=== PATIENT | male | born 1970 | race Caucasian/White ===

== ENCOUNTER 2020-08-29 06:44 | Day surgery (SDC) | payer MEDICARE ==
[~2020-08-29] VITALS: Ht 172.7 cm; Wt 59.1 kg
[2020-08-29 07:10] LABS: BASOPHILS 0.8 % (0-2); EOSINOPHILS 0.8 % (0-7); HEMATOCRIT 40.3 % (42.0-54.0); HEMOGLOBIN 13.8 g/dL (13.5-17.5); LYMPHOCYTES 19.6 % (15-50); MCH 30.2 pg (26.0-34.0); MCHC 34.1 g/dL (31.0-37.0); MCV 88.6 fL (80.0-100.0); MEAN PLATELET VOLUME 7.9 fL (7.4-10.4); MONOCYTES 10.3 % (2-11); NEUTROPHILS 68.5 % (40-80); PLATELET COUNT 381 10x3/uL (130-400); RBC 4.55 10x6/uL (4.20-6.10); RDW 13.2 % (11.5-14.5)
[2020-08-29 07:28] LABS: ALBUMIN 3.9 g/dL (3.4-5.0); ALKALINE PHOSPHATASE 693 U/L (30-120); ALT (SGPT) 234 U/L (10-68); BILIRUBIN - TOTAL 1.07 mg/dL (0.2-1.3); CALC OSMOLALITY 268 mosm/kg (275-300); CALCIUM 10.1 mg/dL (8.5-10.1); CARBON DIOXIDE 26.9 mmol/L (21.0-32.0); CHLORIDE - SERUM 99 mmol/L (98-107); CREATININE - SERUM 0.7 mg/dL (0.6-1.3); GLUCOSE 105 mg/dL (74-106); POTASSIUM - SERUM 3.9 mmol/L (3.5-5.1); PROTEIN - SERUM 7.4 g/dL (6.4-8.2); SODIUM 135 mmol/L (136-145); UREA NITROGEN 9 mg/dL (7-18); eGFR NON AFRICAN AMERICAN > 90 mL/min (90-120)
[2020-08-29 07:52] LABS: APTT 27.3 SECONDS (22.8-39.4); INR 1.09 (0.85-1.17)
[2020-08-29] MEDS ORDERED: VALIUM5 MG PO (08:11)
[2020-08-29] MEDS ORDERED: RISPERDAL1 MG PO (08:11)
[2020-08-29] MEDS ORDERED: TYLENOL W/CODEI1 TAB PO (08:12)
[2020-08-29] MEDS ORDERED: LISINOPRIL10 MG PO (08:12)
[2020-08-29 08:37] VITALS: BP 130/80; Ht 172.7 cm; Wt 59.1 kg
--- NOTE | 2020-08-29 13:12 | NUR ---
IV D/C'D WITH CANNULA INTACT, PRESSURE HELD AND DRSG PLACED. NO PROCEDURE DONE, NO SEDATION, NO ANESTHESIA. PT AMBULATED OUT OF OPS
== END 2020-08-29 13:10 | disposition home or self-care (01) ==
LOC: D.CT 06:44
PROVIDERS: General Practice; ATTEND Nurse Practitioner
DX: R16.0 Hepatomegaly, not elsewhere classified (principal); E80.21 Acute intermittent (hepatic) porphyria; R63.4 Abnormal weight loss; I10 Essential (primary) hypertension; K40.90 Unilateral inguinal hernia, without obstruction or gangrene, not specified as recurrent; Z53.9 Procedure and treatment not carried out, unspecified reason

== ENCOUNTER 2020-09-26 08:26 | Day surgery (SDC) | payer MEDICARE ==
[~2020-09-26] VITALS: Ht 172.7 cm; Wt 60.9 kg
[~2020-09-26 08:26] MED LIST: LISINOPRIL10 MG PO; RISPERDAL1 MG PO; TYLENOL W/CODEI1 TAB PO; VALIUM5 MG PO
[2020-09-26 09:23] VITALS: BP 137/65; Ht 172.7 cm; Wt 60.9 kg
[2020-09-26 14:14] LABS: BASOPHILS 0.4 % (0-2); HEMATOCRIT 39.5 % (42.0-54.0); HEMOGLOBIN 13.2 g/dL (13.5-17.5); LYMPHOCYTES 20.3 % (15-50); MCH 30.6 pg (26.0-34.0); MCHC 33.5 g/dL (31.0-37.0); MCV 91.5 fL (80.0-100.0); MEAN PLATELET VOLUME 9.4 fL (7.4-10.4); MONOCYTES 12.5 % (2-11); NEUTROPHILS 65.8 % (40-80); PLATELET COUNT 347 10x3/uL (130-400); RBC 4.32 10x6/uL (4.20-6.10); RDW 14.1 % (11.5-14.5); WBC 5.7 10x3/uL (4.8-10.8)
--- NOTE | 2020-09-27 12:37 | OP ---
PATIENT NAME: ELIZABETH CHAN MEDICAL RECORD: [id number] :68 LOCATION:D.OPS ADMISSION DATE: SURGEON: LACI KEARNEY MD DATE OF OPERATION: 09/26/2020 PREOPERATIVE DIAGNOSIS: Unexplained weight loss. POSTOPERATIVE DIAGNOSES: Unexplained weight loss with 1 pedunculated colon polyp of 1.5 cm. PROCEDURES: 1. Esophagogastroduodenoscopy with antral biopsies. 2. Total colonoscopy to cecum. 3. Hot biopsy forceps polypectomy x1. SURGEON: Laci Kearney MD WASH OPERATOR: None. BLOOD LOSS: Minimal. ANESTHESIA: IV sedation. COMPLICATIONS: None. The risks, possible complications, and alternatives of the procedure were explained to the patient. He elects to proceed. ENDOSCOPIC COURSE: The patient was conveyed to the endoscopy suite electively on 09/26/2020. IV sedation was induced by the anesthesia staff. A bite block was inserted. A gastroscope was inserted into the mouth. It was advanced easily into the hypopharynx. The esophagus was easily intubated as were the stomach and duodenum. Upon withdrawal, retroflexed and angulus views were obtained. Antral biopsies were obtained. We then withdrew the endoscope. The patient was turned 180 degrees and placed in the Monreal position. A digital rectal examination was performed. The prostate was of normal size and without nodules. It was symmetric. A colonoscope was inserted through the anus. It was easily advanced to the cecum. The prep was adequate. I slowly withdrew the endoscope. A combination of normal imaging and narrow band imaging were utilized. One colon polyp was identified. It was removed in its entirety utilizing the hot biopsy forceps polypectomy technique. The endoscope was withdrawn into the rectum. I retroflexed the scope and then unretroflexed it and removed it under direct vision. I will see the patient in my office in 2 to 3 weeks. I identified no reason for his weight loss. I think we need to investigate the gallbladder further as being a possible source of his weight loss. TRANSINT:[id number] Voice Confirmation ID: [id number] DOCUMENT ID: [id number] OPERATIVE REPORT [id number] KENDRAELIZABETHERIN KEARNEY, LACI GUDINO at 1237 CC: MIHIR CAVAZOS DO [id number] DICTATION DATE: 09/26/20 1236 [facility] HELPER: 09/26/20 1318 [facility] 09/26/20 [facility] [address] [facility] [place] [address]
== END 2020-09-26 13:05 | disposition home or self-care (01) ==
LOC: D.OPS 08:26
PROVIDERS: ATTEND Surgery
DX: R63.4 Abnormal weight loss (principal); K63.5 Polyp of colon; I10 Essential (primary) hypertension; R16.0 Hepatomegaly, not elsewhere classified; E80.21 Acute intermittent (hepatic) porphyria; K40.90 Unilateral inguinal hernia, without obstruction or gangrene, not specified as recurrent